=== PATIENT | male | born 1995 | race Caucasian/White ===

== ENCOUNTER 2018-07-11 21:58 | Emergency (ER) | payer OTHER ==
[~2018-07-11] VITALS: Ht 185.4 cm; Wt 79.4 kg
[~2018-07-11 21:58] MED LIST: ACETAMINOPHEN325 M1 PO; AMOXICILLIN500 M1 PO; IBUPROFEN600 MG PO; NAPROXEN500 MG PO; NORCO 5-325 TA1 EACH PO; NORCO 7.5-3251 EACH PO; TRAMADOL HCL50 MG PO; TYLENOL WITH C1 EACH PO; ULTRAM50 MG PO
== END 2018-07-11 23:10 | disposition home or self-care (01) ==
LOC: ED 21:58
DX: S00.33XA Contusion of nose, initial encounter (principal); W21.05XA Struck by basketball, initial encounter; Y93.89 Activity, other specified
CPT/HCPCS: 70160; 99283-25